=== PATIENT | female | born 1990 | race African-American/Black ===

== ENCOUNTER 2023-03-19 11:45 | Emergency (ER) | payer MEDICAID, SELFPAY ==
--- NOTE | ~2023-03-19 | US_ITS ---
EXAMINATION: US PELVIS CLINICAL INFORMATION: Pelvic pain, history of ovarian cysts. COMPARISON: None available. TECHNIQUE: Ultrasound of the pelvis is performed using both transabdominal and transvaginal transducers along with Doppler. Transvaginal imaging is performed due to inadequate visualization transabdominally. FINDINGS: Uterus: Anteverted/anteflexed measuring 9.3 x 4.9 x 5.4 cm. The endometrial stripe measures up to 1.6 cm at the level the fundus without focal abnormality. The cervix is closed. Mild free fluid in the cul-de-sac. Right ovary: 3.3 x 1.8 x 2.3 cm with a volume of 7.2 mL. Doppler showed no abnormal vascular flow. Left ovary: 3.4 x 3.7 x 3.1 cm with a volume of 14.9 cm. Urinary bladder: Mildly distended without focal abnormality. US/US pelvic and transvaginal IMPRESSION: Unremarkable pelvic ultrasound.
[2023-03-19 12:20] VITALS: BP 122/79; PULSE 77; RESP 20; TEMP 36.6; O2SAT 100; BMI 23.4
--- NOTE | 2023-03-19 12:20 | ED.GENADULT ---
HPI - General Adult General Chief complaint: Abdominal Pain Stated complaint: Abd pain Time Seen by Provider: 03/19/23 12:47 Source: patient, family, RN notes reviewed and global vp creative + content marketing Mode of arrival: ambulatory Limitations: language barrier ([place]an Creole global vp creative + content marketing used) History of Present Illness HPI narrative: This is a 33-year-old [place] Creole speaking female presenting to the emergency department with complaints of left lower abdominal pain x2 weeks. Patient reports that her abdominal pain is intermittent, and waxes and wanes in severity. Patient reports that she was told several years ago that she has had ovarian cyst and states that her symptoms feel similar. She also endorses over the last 8 days that she has had white vaginal discharge and itching. Endorsing dysuria. No hematuria, urinary urgency or frequency. No abdominal pain, fevers, chills. She does not have an OBGYN or PCP at this time. Denies other complaints or concerns at this time. MD complaint: Abd pain/vaginal discharge Onset (ago): week(s) Radiation: non-radiation Relieving factors: none Exacerbating factors: none Associated symptoms: denies other symptoms Treatments prior to arrival: none Related Data Previous Rx's Medication Instructions Recorded fluconazole 150 mg tablet 150 mg PO Q3D 2 doses #2 tabs 03/19/23 ibuprofen 600 mg tablet 600 mg PO Q6H PRN pain #30 tabs 03/19/23 Allergies Allergy/AdvReac Type Severity Reaction Status Date / Time No Known Allergies Allergy Verified 03/19/23 12:23 Review of Systems Review of Systems: Yes all other systems are reviewed and are negative Constitutional: Constitutional: Reports as per [facility] Past Medical History Medical History (Updated 03/20/23 @ 00:00 by Background Daemon) No known health problems Physical Exam ED Vital Signs: Vital Signs - 24 hr 03/19/23 12:20 Temperature 97.9 F Pulse Rate 77 Respiratory Rate 20 Blood Pressure 122/79 Pulse Oximetry 100 Oxygen Delivery Method Room Air BMI result Body Mass Index 23.4 Const General: cooperative, comfortable and no acute distress Orientation/consciousness: patient oriented x3 Limitations: no limitations HENMT Head: Yes normal to inspection, Yes normocephalic and Yes atraumatic Ears: hearing grossly normal bilaterally General nose exam: Normal external nose present Face and sinus: Yes normal facial exam Mouth: Normal oral and palatal mucosa present, oropharynx normal and moist mucous membranes Throat: Yes posterior oropharynx normal Eyes General: appearance normal, both eyes and all related structures Eyelids: Yes eyelids normal Conjunctivae: conjunctivae normal Sclerae: sclerae normal Pupils: Equal, round and reactive pupils present EOM: EOMs intact bilaterally Neck Neck: Yes normal visual inspection, Yes full ROM and Yes no lymphadenopathy Lymphatic: no lymphadenopathy noted Chest Chest palpation & inspection: normal inspection of the chest Resp Effort & Inspection: normal respiratory effort and able to speak in complete sentences Auscultation: clear to auscultation bilaterally, no crackles, no rales, no rhonchi and no wheezes Cardio Rate: regular rate Rhythm: regular rhythm Heart sounds: S1 normal heart sound present and S2 normal heart sound present GI Other: mild suprapubic tenderness to palpation. Inspection: Yes normal to inspection Other: examination performed with nuclear control room operator present throughout the entire duration. White vaginal discharge noted within the vaginal vault. No cervical motion tenderness on exam. General: Yes Bimanual renal exam normal bilaterally External Female Exam: normal external appearance and normal appearance of the urethra Speculum Exam - Vagina: normal appearance of the vagina Skin General skin exam: no rashes or lesions noted Trauma: no lacerations or abrasions Wounds: no wounds Neuro General: patient oriented x3 and moves all extremities Cranial nerves: Yes Equal, round and reactive pupils present Extrem General: Yes normal to inspection Right upper extremity: normal to inspection Left upper extremity: normal to inspection Right lower extremity: normal to inspection Left lower extremity: normal to inspection Course Course Course Narrative: This is a rapid medical exam: Additional HPI, ROS, PE not included below will be deferred to primary provider. Patient is a 33-year-old female presenting with left lower quadrant pain for the past 2 weeks. Denies nausea, vomiting, diarrhea, constipation. Denies fevers. States pain feels similar to menstrual cramps. Plan: labs, UA Reevaluation(s) Reevaluation #1: US normal. Will treat for yeast infection. Given referral to OBGYN for further care. Given return precautions. Pt understands and agrees with plan. Stable for d/c. Medical Decision Making Medical Decision Making MDM Narrative: 33 y/o F presenting to the ER with complaints of abdominal pain x2 weeks and vaginal discharge. On arrival, VSS. Pt has suprapubic tenderness on examination. examination performed with evidence of white vaginal discharge suspicious for yeast infection. Given mild suprapubi tenderness on examination, ultrasound was ordered. Differential Diagnosis Differential Diagnoses: The differential diagnosis associated with the presentation includes ovarian cyst, , ovarian torsion, gonzalo Admission/Observation Consideration of admission/observation: Escalation of care including admission/observation considered Patient would have been admitted to the hospital had her work up had any findings where hospital admission was appropriate and her clinical presentation warranted hospital admission. Lab Data MDM Lab Attestation statement: I reviewed the patient's lab results. No leukocytosis, stable H&H 03/19/23 12:48 03/19/23 12:48 Labs: Lab Results 03/19/23 03/19/23 03/19/23 Range/Units 12:48 12:48 14:38 WBC 9.7 (4.8-10.8) X10*3/uL RBC 5.04 (4.20-5.50) X10*6/uL Hgb 13.6 (12.0-16.0) g/dl Hct 38.1 (37.0-47.0) % MCV 75.6 L (80.0-98.0) fL MCH 27.0 (27.0-33.0) pg MCHC 35.7 H (31.0-35.0) g/dl RDW 13.0 (11.0-16.0) % Plt Count 186 (160-400) X10*3/uL MPV 12.5 H (9.4-12.3) fL Immature Gran % (Auto) 0.4 (0.0-0.4) % Neut % (Auto) 63.4 (45-73) % Lymph % (Auto) 27.9 (20-40) % [place] % (Auto) 6.7 (2-11) % Eos % (Auto) 1.3 (0-4) % Baso % (Auto) 0.3 (0-2) % Lymph # (Auto) 2.7 (1.2-4.9) X10*3/uL [place] # (Auto) 0.7 (0.1-1.2) X10*3/uL Eos # (Auto) 0.1 (0.0-0.4) X10*3/uL Baso # (Auto) 0.0 (0.0-0.2) X10*3/uL Abs Immat Gran (auto) 0.04 H (0.00-0.03) X10*3/uL Absolute Neuts (auto) 6.1 (2.0-8.3) x10*3/uL Absolute Nucleated RBC 0.000 (0.0-0.012) X10*3/uL Nucleated RBC % (auto) 0.0 (0.0-0.2) /100WBC Sodium 138 (135-145) mmol/L Potassium 4.4 (3.3-5.1) mmol/L Chloride 107 (96-108) mmol/L Carbon Dioxide 25 (22-29) mmol/L Anion Gap 10 L (12-20) BUN 10 (9-16) mg/dL Creatinine 0.82 (0.5-1.4) mg/dL Estim Creat Clear Calc 78.5 Estimated GFR > 60 Random Glucose 117 H (60-115) mg/dL Calcium 9.8 (8.4-10.2) mg/dL Total Bilirubin 0.3 (0.0-1.0) mg/dL AST 15 (5-31) U/L ALT 13 (0-31) U/L Alkaline Phosphatase 67 (39-117) U/L Total Protein 8.2 H (6.5-8.0) g/dL Albumin 4.4 (3.5-5.0) g/dL Lipase 56 (8-78) U/L Beta HCG, Quant < 2 mIU/mL Urine Color Urine Appearance Urine pH (5.0-9.0) Ur Specific [place] (1.005-1.025) Urine Protein (Neg-Trace) mg/dL Urine Glucose (UA) (Negative) mg/dL Urine Ketones (Negative) mg/dL Urine Blood (Negative) Urine Nitrite (Negative) Ur Leukocyte Esterase (Negative) Gonzalo species DNA (Negative) Chlam trachomat DNA PCR NOT DETECTED (Not Detect.) Gardnerella DNA Probe (Negative) N.gonorrhoeae DNA (PCR) NOT DETECTED (Not Detect.) Trichomonas DNA Probe (Negative) 03/19/23 03/19/23 Range/Units 14:38 14:38 WBC (4.8-10.8) X10*3/uL RBC (4.20-5.50) X10*6/uL Hgb (12.0-16.0) g/dl Hct (37.0-47.0) % MCV (80.0-98.0) fL MCH (27.0-33.0) pg MCHC (31.0-35.0) g/dl RDW (11.0-16.0) % Plt Count (160-400) X10*3/uL MPV (9.4-12.3) fL Immature Gran % (Auto) (0.0-0.4) % Neut % (Auto) (45-73) % Lymph % (Auto) (20-40) % [place] % (Auto) (2-11) % Eos % (Auto) (0-4) % Baso % (Auto) (0-2) % Lymph # (Auto) (1.2-4.9) X10*3/uL [place] # (Auto) (0.1-1.2) X10*3/uL Eos # (Auto) (0.0-0.4) X10*3/uL Baso # (Auto) (0.0-0.2) X10*3/uL Abs Immat Gran (auto) (0.00-0.03) X10*3/uL Absolute Neuts (auto) (2.0-8.3) x10*3/uL Absolute Nucleated RBC (0.0-0.012) X10*3/uL Nucleated RBC % (auto) (0.0-0.2) /100WBC Sodium (135-145) mmol/L Potassium (3.3-5.1) mmol/L Chloride (96-108) mmol/L Carbon Dioxide (22-29) mmol/L Anion Gap (12-20) BUN (9-16) mg/dL Creatinine (0.5-1.4) mg/dL Estim Creat Clear Calc Estimated GFR Random Glucose (60-115) mg/dL Calcium (8.4-10.2) mg/dL Total Bilirubin (0.0-1.0) mg/dL AST (5-31) U/L ALT (0-31) U/L Alkaline Phosphatase (39-117) U/L Total Protein (6.5-8.0) g/dL Albumin (3.5-5.0) g/dL Lipase (8-78) U/L Beta HCG, Quant mIU/mL Urine Color Yellow Urine Appearance Clear Urine pH 7.0 (5.0-9.0) Ur Specific [place] 1.015 (1.005-1.025) Urine Protein Negative (Neg-Trace) mg/dL Urine Glucose (UA) Negative (Negative) mg/dL Urine Ketones Negative (Negative) mg/dL Urine Blood Negative (Negative) Urine Nitrite Negative (Negative) Ur Leukocyte Esterase Negative (Negative) Gonzalo species DNA Positive A (Negative) Chlam trachomat DNA PCR (Not Detect.) Gardnerella DNA Probe Negative (Negative) N.gonorrhoeae DNA (PCR) (Not Detect.) Trichomonas DNA Probe Negative (Negative) Radiology Impression Discussion of test interpretation with radiology: I have reviewed the radiologist's reading. Radiologist Impression: EXAMINATION:? US PELVIS CLINICAL INFORMATION:? Pelvic pain, history of ovarian cysts. COMPARISON: None available. TECHNIQUE: Ultrasound of the pelvis is performed using both transabdominal and transvaginal transducers along with Doppler. Transvaginal imaging is performed due to inadequate visualization transabdominally. FINDINGS: Uterus: Anteverted/anteflexed measuring 9.3 x 4.9 x 5.4 cm. The endometrial stripe measures up to 1.6 cm at the level the fundus without focal abnormality. The cervix is closed. Mild free fluid in the cul-de-sac. Right ovary: 3.3 x 1.8 x 2.3 cm with a volume of 7.2 mL. Doppler showed no abnormal vascular flow. Left ovary: 3.4 x 3.7 x 3.1 cm with a volume of 14.9 cm. Urinary bladder: Mildly distended without focal abnormality. US/US pelvic and transvaginal IMPRESSION: Unremarkable pelvic ultrasound. ? ? Dictated By: Jose Rafael Barney MD Discharge Plan Discharge Clinical Impression: Vaginal yeast infection, Pelvic pain Patient Disposition: Home, Self-Care Instructions: Yeast Infection (ED) Additional Instructions: Your ultrasound appears to be in normal today. Your pelvic examination was concerning for a yeast infection. Please take prescribed medication as directed. You may also take ibuprofen and apply a warm compresses to your abdomen for pain relief. If any new or worsening symptoms occur including but not limited to worsening pain, worsening vaginal discharge, chest pain or shortness of breath, please return for re-evaluation. Please follow-up with OBGYN as well as primary care for preventative health measures. Ultrasound ou par?t n?mal kathy a. Egzamen basen ou a te kons?ne aundrea yon enfeksyon ledven. Tanpri pran medikaman yo preskri vaishnavi yo mande yo. Ou ka pran ibipwof?n polo epi aplike yon konpr?s cho nan vant ou aundrea soulaje doul?. Si nenp?t nouvo sent?m oswa sent?m [place] pi grav, tankou men pa limite a [place] pi grav doul?, ekoulman nan vajen [place] pi grav, doul? nan pwatrin oswa souf kout, tanpri retounen aundrea re-evalyasyon. Tanpri swiv ak OBGYN osi byen roxanne feldman prensipal aundrea mezi sante prevantif. Prescriptions: New fluconazole 150 mg tablet 150 mg PO Q3D Qty: 2 0RF ibuprofen 600 mg tablet 600 mg PO Q6H PRN (Reason: pain) Qty: 30 0RF [place] [facility] [place] [facility] [place] Interventions: ED Discharge Assessment Last Done: 03/19/23 19:18 Discharge Date/Time: 03/19/23 19:18
[2023-03-19 12:53] LABS: MANUAL DIFF FLAG NO
[2023-03-19 12:55] LABS: Basophils Percent Auto 0.3 % (0-2); Eosinophils Absolute Auto 0.1 X10*3/uL (0.0-0.4); Eosinophils Percent Auto 1.3 % (0-4); Hematocrit 38.1 % (37.0-47.0); Hemoglobin 13.6 g/dl (12.0-16.0); Imm Gran Abs Auto 0.04 X10*3/uL (0.00-0.03); Imm Gran Pct Auto 0.4 % (0.0-0.4); Lymphocytes Absolute Auto 2.7 X10*3/uL (1.2-4.9); Lymphocytes Percent Auto 27.9 % (20-40); Mean Corpuscular HGB Conc 35.7 g/dl (31.0-35.0); Mean Corpuscular Volume 75.6 fL (80.0-98.0); Mean Platelet Volume 12.5 fL (9.4-12.3); Monocytes Absolute Auto 0.7 X10*3/uL (0.1-1.2); Monocytes Percent Auto 6.7 % (2-11); Neutrophils Absolute Auto 6.1 x10*3/uL (2.0-8.3); Neutrophils Percent Auto 63.4 % (45-73); Platelet Count 186 X10*3/uL (160-400); Red Blood Count 5.04 X10*6/uL (4.20-5.50); White Blood Count 9.7 X10*3/uL (4.8-10.8)
[2023-03-19 13:13] LABS: Alanine Aminotransferase 13 U/L (0-31); Albumin Level 4.4 g/dL (3.5-5.0); Alkaline Phosphatase 67 U/L (39-117); Anion Gap 10 (12-20); Aspartate Amino Transferase 15 U/L (5-31); Bilirubin Total 0.3 mg/dL (0.0-1.0); Blood Urea Nitrogen 10 mg/dL (9-16); Calcium 9.8 mg/dL (8.4-10.2); Carbon Dioxide 25 mmol/L (22-29); Chloride 107 mmol/L (96-108); Creatinine Clr Calc Pharmacy 78.5; Estimated Glomerular Filt Rate > 60; Glucose Random 117 mg/dL (60-115); Lipase 56 U/L (8-78); Potassium 4.4 mmol/L (3.3-5.1); Sodium 138 mmol/L (135-145); Total Protein 8.2 g/dL (6.5-8.0)
[2023-03-19 13:32] LABS: HCG Quantitative < 2 mIU/mL
--- NOTE | 2023-03-19 14:38 | PC.NURSE ---
receiver setter utilized during pelvic exam by pa and medical cost consultant. aox4. radha, coop.
[2023-03-19 14:46] LABS: Appearance Urine Clear; Color Urine Yellow; Glucose Urine UA Negative (Negative); Leukocyte Esterase Urine Negative (Negative); Nitrite Urine Negative (Negative); Specific Gravity - Urine 1.015 (1.005-1.025); Urine Blood Negative (Negative); Urine Ketones Negative (Negative); Urine Protein Negative (Neg-Trace)
[2023-03-19 18:01] LABS: CT PCR NOT DETECTED (Not Detect.); NG PCR NOT DETECTED (Not Detect.)
[2023-03-19 18:09] VITALS: BP 105/75; PULSE 69; RESP 20; TEMP 36.6; O2SAT 99
[2023-03-20 14:03] LABS: BV Int Neg Control Negative (Negative); BV Int Pos Control Positive (Positive)
== END 2023-03-19 19:18 | disposition home or self-care (01) ==
PROVIDERS: Physician Assistant Medical; Registered Nurse Emergency; Emergency Provider Student in an Organized Health Care Education/Training Program
DX: B37.31 Acute candidiasis of vulva and vagina (principal); R10.2 Pelvic and perineal pain; Z79.899 Other long term (current) drug therapy
CPT/HCPCS: 0353U; 36415; 76830; 76856; 80053; 81003; 83690; 84702; 85025; 87480; 87510; 87660; 99284

== ENCOUNTER 2023-03-28 11:49 | Outpatient (AMB) | payer MEDICAID, OTHER, SELFPAY ==
--- NOTE | 2023-03-28 11:50 | A.OFFVIS_ITS ---
Intake Vital Signs 03/28/23 11:54 Height 5 ft 6 in Weight 132 lb 4.438 oz BMI 21.3 BP 122/70 Intake Visit Reasons: ER Follow up/Creole Try Out Person Required: Yes Information Interpreted: non-clinical & clinical Accompanied by: Self / Same As Patient Allergies No Known Allergies Allergy (Verified 03/28/23 11:56) Is last menstrual period known: Yes Last menstrual period: 03/25/23 HPI HPI Comments History of Present Illness Details Presenting for ER follow-up. The patient went to the emergency room on 03/19/2023 with left lower abdominal pain of 2 weeks duration, the following workup was done, CBC, chemistry, UA all negative, test was negative. Ultrasound of the pelvis was unremarkable. BV panel was positive for Dalia, the patient was discharged home with fluconazole. Since then the patient in doing well her abdominal pain has resolved and no more Dalia vulvovaginal sy mptoms. The patient is interested in an annual exam today, last co testing was many years ago [facility] Medical History (Updated 03/28/23 @ 12:12 by Brady Berry MD) No known health problems Social History Household Members: Spouse and Children Alcohol intake: never Patient Tobacco Use Status: Never used Tobacco Current occupational status: unemployed Sexual orientation: Straight/Heterosexual Gender identity: Female Female Reproductive History Menstrual Date of last menstrual period: 03/25/23 Review of Systems Const All systems reviewed & are unremarkable except as noted in HPI and below Card Reports as per HPI Resp Reports as per HPI GI Reports as per HPI and Reports no additional complaints Reports as per HPI Physical Exam Vital Signs: BMI result Body Mass Index 21.3 Const General: cooperative, healthy appearing and comfortable Chest Chest palpation & inspection: normal inspection of the chest and normal palpation of entire chest wall Breast/axilla inspection: normal inspection of the breasts and normal inspection of the axillae Breast/axilla palpation: normal palpation of the breasts, normal palpation of the axillae and no axillary lymphadenopathy Resp Effort & Inspection: normal respiratory effort Auscultation: clear to auscultation bilaterally Percussion: percussion normal Cardio Palpation: normal PMI Rate: regular rate Rhythm: regular rhythm Heart sounds: no murmurs and no rubs Peripheral pulses: Peripheral pulses 2+ throughout GI Inspection: Yes normal to inspection Palpation (GI): Soft to palpation, nontender, no guarding, not rigid and No hepatosplenomegaly present Percussion: Yes normal to percussion Auscultation: normal bowel sounds Rectal Exam - Female: deferred General: Yes bladder normal to palpation External Female Exam: No lesion Speculum Exam - Vagina: normal appearance of the vagina, normal palpation, normal vaginal discharge and not erythematous Speculum Exam - Cervix: normal appearance of the cervix and normal palpation Bimanual exam- vagina & uterus: normal bimanual exam, normal palpation, uterine size normal, bladder normal to palpation, consistency normal and normal palpation Bimanual Exam- Adnexa, other: normal adnexae, no masses and no tenderness Assessment & Plan Assessment & Plan (1) Well woman exam: Code(s): Z01.419 - Encounter for gynecological examination (general) (routine) without abnormal findings Plan: Cotesting done. Counseled the patient about the recommended dietary allowance of 1000 mg of Calcium & 600 IU of vitamin D. The patient was instructed to perform monthly self-breast exams and to schedule an annual exam in a year; All questions answered and the patient verbalized understanding. Instructed the patient to schedule annual exam in a year Coding Level of Care Code New Pt Prev Care 18-39yr([id number] Diagnoses Well woman exam Z01.419
[2023-03-28 11:54] VITALS: BP 122/70; BMI 21.3
== END 2023-03-28 12:14 | disposition home or self-care (01) ==
PROVIDERS: PCP Nurse Practitioner Family; Visit Provider Obstetrics & Gynecology
DX: Z01.419 Encounter for gynecological examination (general) (routine) without abnormal findings (principal)
CPT/HCPCS: 99385

== ENCOUNTER 2023-03-28 11:49 | Outpatient (REF) | payer OTHER, SELFPAY ==
[2023-04-03 05:28] LABS: HPV 16 RNA NOT DETECTED (NOT DETECTED); HPV mRNA E6/E7 rflx Detected (Not Detected)
== END 2023-03-28 11:50 | disposition home or self-care (01) ==
LOC: HO.LNP 11:49
PROVIDERS: PCP Nurse Practitioner Family; Visit Provider Obstetrics & Gynecology
DX: Z01.419 Encounter for gynecological examination (general) (routine) without abnormal findings (principal); Z11.51 Encounter for screening for human papillomavirus (HPV)
CPT/HCPCS: 87624; 87625; 88142

== ENCOUNTER 2023-03-31 09:01 | Emergency (ER) | payer OTHER, SELFPAY ==
[2023-03-31 09:02] VITALS: BP 112/76; PULSE 93; RESP 19; TEMP 37.3; O2SAT 100; BMI 24.5
[2023-03-31 09:08] VITALS: BP 103/72; PULSE 82; O2SAT 100
[2023-03-31 09:13] VITALS: RESP 18
--- NOTE | 2023-03-31 09:24 | PC.NURSE ---
pt able to talk well w full sentences. 100% o2 sat. paraprofessional interpreter tyrell at bedside for eval. calm, coop. reports mild SOB at rest. breathing appears normal/regular
[2023-03-31 09:25] VITALS: O2SAT 100
--- NOTE | 2023-03-31 10:20 | ED.URI ---
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 Patient denies any difficulty breathing, difficulty swallowing, vomiting, diarrhea, abdominal pain, headache, and neck stiffness, skin rash. No recent travel or sick contact. Taking Tylenol p.r.n. for symptoms Related Data Previous Rx's Medication Instructions Recorded ibuprofen 600 mg tablet 600 mg PO Q6H PRN pain #30 tabs 03/19/23 amoxicillin 500 mg capsule 500 mg PO BID #20 caps 03/31/23 ibuprofen 600 mg tablet 600 mg PO Q8H PRN fever or pain 03/31/23 #30 tabs Allergies Allergy/AdvReac Type Severity Reaction Status Date / Time No Known Allergies Allergy Verified 03/31/23 09:02 Review of Systems Review of Systems: Yes all other systems are reviewed and are negative Constitutional: Constitutional: Reports no additional constitutional complaints, Reports body ache(s), Denies chills, Reports fever(s), Denies headache(s) and Denies weakness Eyes: Eyes: Reports no additional eye complaints and Denies change in vision ENT: Reports system reviewed and no additional complaints, except as documented, Denies dizziness, Denies headache(s), Denies nasal congestion, Denies nasal discharge, Denies neck pain and Reports sore throat Cardiovascular: Cardiovascular: Reports no additional cardiovascular complaints, Denies chest pain, Denies leg edema and Denies dyspnea Respiratory: Respiratory: Reports no additional respiratory complaints, Reports cough and Denies dyspnea Gastrointestinal: Gastrointestinal: Reports no additional gastrointestinal complaints, Denies abdominal pain, Denies diarrhea, Denies nausea and Denies vomiting Genitourinary: Genitourinary: Reports no additional female genitourinary complaints and Denies urinary incontinence Musculoskeletal: Musculoskeletal: Reports no additional musculoskeletal complaints, Denies back pain, Denies arthralgias, Denies joint swelling, Denies neck pain, Denies numbness and Denies tingling Integumentary/Breasts: Skin/Breast: Reports system reviewed and no additional complaints, except as docu and Denies rash Neurologic: Reports system reviewed and no additional complaints, except as documented, Denies Abnormal speech present, Denies dizziness, Denies headache(s), Denies numbness, Denies tingling and Denies weakness PMFSH Past Medical History Attestation statement: The following information was validated with the patient. Source: old records reviewed and nursing notes reviewed Medical History UTI (urinary tract infection) Social History Social History Household Members: Spouse and Children Alcohol intake: never Patient Tobacco Use Status: Never used Tobacco Smoked in Last 30 Days: No Use of substances other than those prescribed or required for medical reasons: No Advance Directives: No Current occupational status: unemployed Sexual orientation: Straight/Heterosexual Gender identity: Female Physical Exam Vital Signs: Vital Signs: Last Vital Signs Temp 99.2 F 03/31/23 09:02 Pulse 93 03/31/23 09:02 Resp 18 03/31/23 09:13 BP 112/76 03/31/23 09:02 Pulse Ox 100 03/31/23 09:25 O2 Del Method Room Air 03/31/23 09:25 BMI result Body Mass Index 24.5 Const: General: cooperative, healthy appearing, comfortable and no acute distress Orientation/consciousness: patient oriented x3 Limitations: no limitations HEENT: Head: Yes normal to inspection Ears: hearing grossly normal bilaterally and TM's normal bilaterally General nose exam: Normal external nose present Face and sinus: Yes normal facial exam Mouth: Normal oral and palatal mucosa present Throat: Yes posterior oropharynx normal, Yes uvula midline and Yes abnormal tonsil ( bilateral tonsillar erythema and exudate) Eyes: General: appearance normal, both eyes and all related structures Pupils: Equal, round and reactive pupils present Neck: Neck: Yes normal visual inspection, Yes full ROM, Yes no lymphadenopathy and Yes no meningeal signs Chest: Chest palpation & inspection: normal inspection of the chest Resp: Effort & Inspection: normal respiratory effort Auscultation: clear to auscultation bilaterally Cardio: Rate: regular rate Rhythm: regular rhythm Peripheral pulses: Peripheral pulses 2+ throughout GI: Inspection: Yes normal to inspection Palpation (GI): Soft to palpation and nontender Auscultation: normal bowel sounds Back/Spine/Pelvis: Thoracic/Lumbar Spine: thoracic and lumbar spine normal to inspection Skin: General skin exam: no rashes or lesions noted Neuro: General: patient oriented x3, no meningeal signs, no focal motor deficits and normal sensation to monofilament Cranial nerves: Yes Equal, round and reactive pupils present Cognition (Neuro): normal cognition Speech: No Abnormal speech present Gait exam (Neuro): Normal gait present Motor exam (neuro): 5/5 motor strength present throughout Extrem: General: Yes normal to inspection Course Course Course Narrative: strep screen is positive. Patient will be discharged home with course of amoxicillin with documentations for supportive care at home. Reviewed worrisome signs and symptoms of when to return to the emergency room. Comfortable plan for discharge home. Medications Administered Discontinued Medications Generic Name Dose Route Start Last Admin Trade Name Jerzy PRN Reason Stop Dose Admin Ibuprofen 800 mg 03/31/23 10:06 03/31/23 10:46 Ibuprofen 800 Mg Tablet PO 03/31/23 10:07 800 mg ONCE ONE Administration Medical Decision Making Medical Decision Making [facility] Narrative: 33-year-old female previously healthy here with complaints of subjective fever, body aches, cough and sore throat since Saturday. Patient denies any difficulty breathing, difficulty swallowing, vomiting, diarrhea, abdominal pain, headache, and neck stiffness, skin rash. No recent travel or sick contact. Taking Tylenol p.r.n. for symptoms on exam patient has bilateral tonsillar erythema and exudate. No evidence of a [employer]AKING [employer]IT [employer]ER. Uvula is midline. Patient tolerating secretions with no difficulty. No lymphadenopathy or meningeal signs. Will send testing for strep, flu, RSV, COVID. Will give analgesia Differential Diagnosis Differential Diagnoses: The differential diagnosis associated with the presentation includes strep pharyngitis viral syndrome low concern for retropharyngeal abscess, [employer], Prosper's angina, epiglottitis Admission/Observation Consideration of admission/observation: Escalation of care including admission/observation considered Tolerating p.o. with no difficulty. Patient can be discharged home with oral antibiotics. No need for admission for IV antibiotics Lab Data [facility] Lab Attestation statement: I reviewed the patient's lab results. strep screen is positive Labs: Lab Results 03/31/23 03/31/23 Range/Units 09:30 10:45 Influenza Type A (PCR) NEGATIVE (Negative) Influenza Type B (PCR) NEGATIVE (Negative) RSV RNA Qual (PCR) NEGATIVE (Negative) SARS-CoV-2 RNA (RT-PCR) NEGATIVE (Negative) S. pyogenes GrpA DAVID Positive A (Negative) Tests considered The following testing was considered but not selected: no concern for [employer] or RPA so no need for CT soft tissue Prescription Management I considered prescription management with: Antibiotic patient has strep pharyngitis necessitating need for oral antibiotic Discharge Plan Discharge Clinical Impression: Pharyngitis Patient Disposition: Home, Self-Care Instructions: Pharyngitis (ED) Additional Instructions: Testing for flu, covid, rsv are negative. Increase fluids, rest. Las pruebas de gripe, covid y rsv son negativas. Aumentar l?quidos, descansar. Prescriptions: New amoxicillin 500 mg capsule 500 mg PO BID Qty: 20 0RF ibuprofen 600 mg tablet 600 mg PO Q8H PRN (Reason: fever or pain) Qty: 30 0RF No Action ibuprofen 600 mg tablet 600 mg PO Q6H PRN (Reason: pain) Qty: 30 0RF Referrals: Physician,None [Primary Care Provider] - 1 week
[2023-03-31] MEDS: Ibuprofen 800 MG TABLET PO (10:46)
[2023-03-31 10:51] LABS: Influenza A PCR NEGATIVE (Negative); Influenza B PCR NEGATIVE (Negative); Resp Syncy Virus RNA Qual PCR NEGATIVE (Negative); SARS COV2 PCR INHOUSE NEGATIVE (Negative)
[2023-03-31 10:55] LABS: IDNOW Serial# 08D9AD1C; Strep A Nucleic Acid Positive (Negative)
[2023-03-31 12:03] VITALS: PULSE 90; RESP 18; TEMP 36.8; O2SAT 99
[2023-03-31 12:04] VITALS: BP 109/66
--- NOTE | 2023-03-31 12:07 | PC.NURSE ---
reports decreased pain. afebrile. talking in full sentences.
== END 2023-03-31 12:17 | disposition home or self-care (01) ==
PROVIDERS: Nurse Practitioner Family; Emergency Provider Emergency Medicine
DX: J02.9 Acute pharyngitis, unspecified (principal); R06.02 Shortness of breath; R50.9 Fever, unspecified; R05.9 Cough, unspecified; Z20.822 Contact with and (suspected) exposure to COVID-19; Z20.828 Contact with and (suspected) exposure to other viral communicable diseases; Z79.899 Other long term (current) drug therapy
CPT/HCPCS: 0241U; 87651; 99283; 99285